=== PATIENT | female | born 1945 | race Caucasian/White ===

== ENCOUNTER 2017-04-10 12:14 | Observation (INO) | payer OTHER ==
[~2017-04-10] VITALS: Ht 167.6 cm; Wt 69.9 kg
[~2017-04-10 12:14] MED LIST: ATEN-60; BIOT5TAB3 PO; BISA-4; CALC500C71; DIGETAB13; ERGO1CAP6 PO; FERR325T50 PO; FURO40TA4 PO; GUAISYP5 PO; HYDR500T13; LACT10SO3 PO; MECL25TA94; MIRT15TA3 PO; MULT-228 PO; OMEP20TA44 PO; PERCOT PO; POTA10TA75; PRI50T PO; RIFA550T PO; SPIR50TA23 PO; TEMA15CA; TEMA15CA91 PO; TEMA30CA PO; [UNRECOGNIZED DRUG - CODE] PO
[2017-04-10 17:59] LABS: Basophils # (auto) 0 uL; Basophils % (auto) 0.2 % (0.0-2.0); Eosinophils # (auto) 0 uL; Hematocrit 31.9 % (36.0-46.0); Hemoglobin 10.8 g/dL (12.2-16.2); Lymphocytes # (auto) 0.6 uL; Lymphocytes % (auto) 19.9 % (10.0-50.0); Mean Corpuscular Hemoglobin 31.2 pg (28.0-32.0); Mean Corpuscular Volume 91.7 fL (80.0-100.0); Mean Platelet Volume 8.8 fL (7.4-10.4); Monocytes # (auto) 0.2 uL; Monocytes % (auto) 7.6 % (0.0-12.0); Neutrophils # (auto) 2.3 uL; Neutrophils % (auto) 72.3 % (37.0-80.0); Platelet Count (auto) 90 10^3/uL (140-450); White Blood Cell 3.2 10^3/uL (4.4-10.8)
[2017-04-10 18:14] LABS: INR 0.99 (0.9-1.15); Partial Thromboplastin Time 22.9 sec (22.64-33.71); Prothrombin Time 10.8 sec (9.37-12.3)
[2017-04-10 18:29] LABS: Albumin 3.2 g/dL (3.4-5.0); BUN/Creatinine Ratio 29.1; Bilirubin, Total 1.3 mg/dL (0.2-1.0); Calcium 8.5 mg/dL (8.5-10.1); Potassium 4.4 mmol/L (3.5-5.1); Total Protein 6.1 g/dL (6.4-8.2)
[2017-04-10 19:28] LABS: Anisocytosis Slight; Platelet Estimate Decreased
[2017-04-10 19:29] LABS: Burr Cells FEW; Ovalocytes FEW
[2017-04-10] MEDS ORDERED: cefTRIAXone 1GM/50ML D5W 50 ML IV ONE (20:30)
[2017-04-10] MEDS ORDERED: MORPHINE SULF INJ 2 MG/ML SYRINGE 1ML IV ONE (20:30)
[2017-04-10] MEDS ORDERED: ONDANSETRON HCL 4 MG/2 ML VIAL IV ONE (20:30)
[2017-04-10] MEDS ORDERED: IBUPROFEN 400 MG TAB PO ONE (21:45)
[2017-04-11 01:00] VITALS: BP 124/72
== END 2017-04-11 01:16 | disposition short-term general hospital (02) | DRG 556 ==
LOC: ER 12:14 → EDBD 12:14 → OVERFLOW 15:39 → ER 04-11 01:16
PROVIDERS: ADMIT Family Medicine; ATTEND Family Medicine
DX: M25.562 Pain in left knee (principal); Z94.4 Liver transplant status; Z79.899 Other long term (current) drug therapy; M19.90 Unspecified osteoarthritis, unspecified site; Z85.05 Personal history of malignant neoplasm of liver; Z96.653 Presence of artificial knee joint, bilateral; Z83.3 Family history of diabetes mellitus; Z82.49 Family history of ischemic heart disease and other diseases of the circulatory system; M85.80 Other specified disorders of bone density and structure, unspecified site; D63.8 Anemia in other chronic diseases classified elsewhere; D69.6 Thrombocytopenia, unspecified; I11.0 Hypertensive heart disease with heart failure; I50.9 Heart failure, unspecified
CPT/HCPCS: 36415; 71010; 73562; 80053; 83735; 84550; 85025; 85610; 85730; 93005; 96365; 96366; 96375; G0378; J0696; J2405

== ENCOUNTER 2022-07-17 15:09 | Emergency (ER) | payer OTHER ==
[~2022-07-17] VITALS: Ht 165.1 cm; Wt 75.0 kg
[~2022-07-17 15:09] MED LIST changes: -BISA-4; +BISA-65; +GUAISYP12 PO; -GUAISYP5 PO; -MIRT15TA3 PO; +MIRT1TAB38 PO; +POTA-264; -POTA10TA75; -PRI50T PO; +PRIM50TA5 PO; -SPIR50TA23 PO; +SPIR50TA5 PO; +TEMA15CA2 PO; -TEMA15CA91 PO; +TRIM100T11 PO; -[UNRECOGNIZED DRUG - CODE] PO
[2022-07-17 16:56] LABS: Hematocrit 41.2 % (36.0-46.0); Hemoglobin 13.3 g/dL (12.2-16.2); Mean Corpuscular Hgb Conc. 32.4 g/dL (32.0-36.0); Mean Corpuscular Volume 89.7 fL (80.0-100.0); Red Blood Cells 4.59 10^6/uL (4.0-5.20); Red Cell Distribution Width 17.8 % (11.8-14.3); White Blood Cell 28.5 10^3/uL (4.4-10.8)
[2022-07-17] MEDS ORDERED: SODIUM CHLORIDE 0.9% 1,000 ML IV ONE (17:00)
[2022-07-17 17:05] LABS: Basophils % (manual) 0 (0.0-2.0); Blast Cells 0; Eosinophils % (manual) 0 (0-7); Metamyelocytes % 0; Myelocytes % 0; Promyelocytes % 0; Reactive Lymphocytes 0
[2022-07-17 17:09] LABS: Albumin 2.3 g/dL (3.4-5.0); BUN/Creatinine Ratio 25.4; Magnesium 3.1 mg/dL (1.6-2.6); Potassium 5.2 mmol/L (3.5-5.1)
[2022-07-17 17:20] LABS: Band Neutrophils % (manual) 12; Lymphocytes % (manual) 3 (10.0-50.0); Monocytes % (manual) 4 (0-12)
[2022-07-17 17:24] LABS: Bilirubin, Total 7.4 mg/dL (0.2-1.0)
[2022-07-17] MEDS ORDERED: PIPERACILLIN-TAZOB 3.375GM 100 ML IV ONE (18:30)
[2022-07-17 19:05] LABS: Lactic Acid w/Reflex 2.6 mmol/L (0.4-2.0)
[2022-07-17 19:12] LABS: Magnesium 3.1 mg/dL (1.6-2.6)
[2022-07-17] MEDS ORDERED: fentaNYL CITRATE 100 MCG/2 ML VL IV ONE (19:45)
[2022-07-17 23:20] VITALS: BP 129/78
== END 2022-07-17 23:30 | disposition short-term general hospital (02) ==
LOC: EDUNIT# 15:09 → ER 15:09 → EDBD 15:09 → ER 23:30
DX: A41.9 Sepsis, unspecified organism (principal); I95.9 Hypotension, unspecified; E86.0 Dehydration; D72.829 Elevated white blood cell count, unspecified; N17.9 Acute kidney failure, unspecified; R79.89 Other specified abnormal findings of blood chemistry; J90 Pleural effusion, not elsewhere classified; J18.9 Pneumonia, unspecified organism; N39.0 Urinary tract infection, site not specified; E80.6 Other disorders of bilirubin metabolism; Z20.822 Contact with and (suspected) exposure to COVID-19
CPT/HCPCS: 36415; 71045; 74176; 76705; 80053; 82140; 83605; 83690; 83735; 84484; 85007; 85027; 87426; 93005; 96361; 96374; 99291; J3010; J7030; J2543